=== PATIENT | male | born 2000 | race Caucasian/White ===

== ENCOUNTER 2024-09-14 12:25 | Emergency (ER) | payer MEDICAID ==
[~2024-09-14] VITALS: Ht 165.1 cm; Wt 83.9 kg
[2024-09-14 12:48] VITALS: BP 147/81; PULSE 42; RESP 18; TEMP 98; O2SAT 100
[2024-09-14] MEDS ORDERED: KETOROLAC 30 MG/ML VIAL IM ONE (13:05)
[2024-09-14] MEDS: KETOROLAC 30 MG/ML VIAL IM ONE (13:21)
[2024-09-14] MEDS ORDERED: CYCL-711 PO (13:53)
[2024-09-14] MEDS ORDERED: IBUP-2218 PO (13:53)
[2024-09-14] MEDS ORDERED: HYDR-5071 PO (13:53)
== END 2024-09-14 13:55 | disposition home or self-care (01) ==
LOC: MED 12:25
DX: S43.101A Unspecified dislocation of right acromioclavicular joint, initial encounter (principal); Z79.899 Other long term (current) drug therapy; Z98.890 Other specified postprocedural states; X58.XXXA Exposure to other specified factors, initial encounter; Y93.89 Activity, other specified; Y92.89 Other specified places as the place of occurrence of the external cause; Y99.8 Other external cause status
CPT/HCPCS: 73030; 96372; 99283; J1885